=== PATIENT | female | born 1970 | race Caucasian/White ===

== ENCOUNTER → 2016-08-08 | Outpatient (CLI) | payer OTHER ==
[~2016-08-08] MED LIST: ALPR0.5T PO; FERR325T81 PO; IBUP-103 PO; MULTTAB58 PO; ONDA4TAB7 SL; PANT1TAB48 PO; PROM25TA16 PO
[2016-08-08 12:12] LABS: BASO % 0.2 %; BASO ABS # 0.01 K/uL (0-0.2); COMPLETE YES; EOS % 1.3 %; HEMATOCRIT 36.5 % (37-47); LYMPH % 36.8 %; LYMPH ABS # 2.33 K/uL (1.2-3.4); MEAN CELL VOLUME 78.5 fL (80-100); MEAN CORPUSCULAR HEMOGLOBIN 24.3 pg (25-34); MEAN PLATELET VOLUME 9.8 fL (7.4-10.4); NEUT % 55.7 %; PLATELET COUNT 322 K/uL (130-400); RED BLOOD COUNT 4.65 M/uL (4.2-5.4); WHITE BLOOD COUNT 6.33 K/uL (4.8-10.8)
[2016-08-08 12:33] LABS: ALT/SGPT 18 U/L (12-78); BLOOD UREA NITROGEN 14 mg/dl (7-18); BUN/CREATININE RATIO 18.6 (10-20); CARBON DIOXIDE 29 mmol/L (21-32); CHLORIDE 105 mmol/L (98-107); CREATININE 0.74 mg/dl (0.60-1.20); GLUCOSE 83 mg/dl (70-99); SODIUM 141 mmol/L (136-145)
[2016-08-08 12:42] LABS: ALB/GLOB RATIO 0.9 (0.9-2); ALKALINE PHOSPHATASE 87 U/L (45-117); AST/SGOT 13 U/L (15-37); THYROID STIMULATING HORMONE 0.626 uIu/ml (0.300-4.500); TOTAL IRON BINDING CAPACITY 554 mcg/dl (250-450)
[2016-08-10 16:28] LABS: IGA SERUM 319 mg/dL (81-463); TIS TRANS IGA 1 U/mL (<4)
== END | disposition home or self-care (01) ==
LOC: C.LAB1850 10:56
PROVIDERS: ATTEND Internal Medicine
DX: Z98.84 Bariatric surgery status (principal); R19.7 Diarrhea, unspecified; G47.9 Sleep disorder, unspecified

== ENCOUNTER → 2017-01-01 | Outpatient (CLI) | payer OTHER ==
[2017-01-01 14:47] LABS: BASO % 0.2 %; BASO ABS # 0.01 K/uL (0-0.2); COMPLETE YES; EOS % 0.9 %; HEMATOCRIT 41.1 % (37-47); IG% 0.2 %; LYMPH % 29.7 %; LYMPH ABS # 1.71 K/uL (1.2-3.4); MEAN CELL VOLUME 83.7 fL (80-100); MEAN CORPUSCULAR HEMOGLOBIN 26.1 pg (25-34); MEAN CORPUSCULAR HGB CONC 31.1 g/dl (32-36); MEAN PLATELET VOLUME 9.8 fL (7.4-10.4); MONO % 5.6 %; NEUT % 63.4 %; PLATELET COUNT 328 K/uL (130-400); RED BLOOD COUNT 4.91 M/uL (4.2-5.4); WHITE BLOOD COUNT 5.75 K/uL (4.8-10.8)
[2017-01-01 15:03] LABS: TOTAL IRON BINDING CAPACITY 484 mcg/dl (250-450)
== END | disposition home or self-care (01) ==
LOC: C.LAB1850 13:23
PROVIDERS: ATTEND Internal Medicine
DX: E53.8 Deficiency of other specified B group vitamins (principal); E55.9 Vitamin D deficiency, unspecified; D50.9 Iron deficiency anemia, unspecified

== ENCOUNTER → 2017-04-17 | Outpatient (CLI) | payer OTHER ==
[2017-04-17 13:18] LABS: BASO % 0.2 %; BASO ABS # 0.01 K/uL (0-0.2); COMPLETE YES; EOS % 0.7 %; HEMATOCRIT 40.1 % (37-47); IG% 0.2 %; LYMPH % 45.8 %; LYMPH ABS # 2.66 K/uL (1.2-3.4); MEAN CELL VOLUME 85.9 fL (80-100); MEAN CORPUSCULAR HEMOGLOBIN 27.6 pg (25-34); MEAN CORPUSCULAR HGB CONC 32.2 g/dl (32-36); MONO % 6.4 %; NEUT % 46.7 %; PLATELET COUNT 293 K/uL (130-400); RED BLOOD COUNT 4.67 M/uL (4.2-5.4); WHITE BLOOD COUNT 5.81 K/uL (4.8-10.8)
[2017-04-17 14:35] LABS: TOTAL IRON BINDING CAPACITY 524 mcg/dl (250-450)
== END | disposition home or self-care (01) ==
LOC: C.LAB1850 11:30
PROVIDERS: ATTEND Internal Medicine
DX: D64.9 Anemia, unspecified (principal)

== ENCOUNTER 2023-06-27 11:38 | Inpatient (IN) ==
--- NOTE | 2023-06-27 11:45 | ED Triage Note ---
Date of Service June 27, 2023 Provider in Triage Author: Unique Butt History of Present Illness This patient was briefly evaluated while in triage. An abbreviated physical exam was performed. This patient is a 52-year-old Female who presents to the ED for evaluation of was feeling poorly for about a week - arms weak, dizzy spells, nosebleeds, HAs at work acutely today, "couldn't use right hand," BP was 200s systolic has a headache Physical Exam GENERAL: NAD, hypertensive CARDIOVASCULAR: RRR RESPIRATORY: CTA ABDOMEN: BS x 4. Nontender to palpation. 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 Please see further documentation for the full ED course.
--- NOTE | 2023-06-27 12:23 | XRay Report ---
XR chest 1V not portable CLINICAL HISTORY: Hypertension. COMPARISON STUDY: Chest radiograph and chest CT April 21, 2012. FINDINGS: Lungs are clear. There is no pneumothorax or pleural effusion. Cardiac size is normal. Medi astinal contours are normal. There is no evidence for pulmonary edema. IMPRESSION: No acute cardiopulmonary findings. No change in appearance of the chest. ACT 112: Negative or not required by law. Electronically signed by: Keith Renteria M.D. 06/27/2023 12:22 PM
--- NOTE | 2023-06-27 12:38 | CT Scan Report ---
CT head/brain wo con CLINICAL HISTORY: 52 years-old Female with Hypertension. Acute hypertension TECHNIQUE: Multiple axial CT images of the head were obtained without contrast. A dose lowering tech nique was utilized adhering to the principles of ALARA. CT DOSE: 703.85 mGy.cm COMPARISON: None. FINDINGS: No acute intracranial hemorrhage, midline shift, intracranial mass, hydrocephalus, territorial ischem ia or abnormal extra-axial collection. The calvarium is intact. Chronic appearing volume loss of the right maxillary sinus. Mastoid air david ls are clear. IMPRESSION: No acute intracranial abnormality. ACT 112: Negative or not required by law. The above report was generated using voice recognition software. It may contain grammatical, syntax o r spelling errors. Electronically signed by: David Cameron M.D. 06/27/2023 12:37 PM
[2023-06-27 12:54] LABS: Basophils # (auto) 0.03 K/uL (0.00-0.20); Basophils % (auto) 0.4 %; Eosinophils # (auto) 0.03 K/uL (0.00-0.50); Eosinophils % (auto) 0.4 %; Hematocrit (blood only) 42.5 % (37.0-47.0); Hemoglobin 14.1 g/dl (12.0-16.0); Immature Granulocytes # (auto) 0.02 K/uL (0.01-0.20); Immature Granulocytes % (auto) 0.3 %; Lymphocytes # (auto) 2.18 K/uL (1.20-3.40); Lymphocytes % (auto) 31.7 %; Mean Corpuscular Hemoglobin 29.3 pg (25.0-34.0); Mean Corpuscular Hgb Conc 33.2 g/dL (32.0-36.0); Mean Corpuscular Volume 88.2 fL (80.0-100.0); Mean Platelet Volume 9.8 fL (9.4-12.4); Monocytes # (auto) 0.41 K/uL (0.11-0.59); Neutrophils # (auto) 4.21 K/uL (1.40-6.50); Neutrophils % (auto) 61.2 %; Platelet Count 253 K/uL (130-400); RDW Coefficient of Variation 13.9 % (11.5-14.5); RDW Standard Deviation 44.5 fL (36.4-46.3); Red Blood Count 4.82 M/uL (4.20-5.40); White Blood Count 6.88 K/ul (4.8-10.8)
[2023-06-27 13:19] LABS: Alanine Aminotransferase 20 U/L (7-52); Albumin Globulin Ratio 1.2 (0.9-2); Albumin Level 4.6 gm/dl (3.4-5.0); Alkaline Phosphatase 89 U/L (34-104); Anion Gap 9 (3-11); Aspartate Aminotransferase 19 U/L (13-39); BUN Creatinine Ratio 17.5 (10-20); Bilirubin,Total 0.4 mg/dl (0.2-1.0); Blood Urea Nitrogen 14 mg/dl (6-23); Calcium 9.7 mg/dl (8.6-10.3); Carbon Dioxide 26 mmol/L (21-32); Chloride 102 mmol/L (98-107); Est GFR (African American) 98.9 ml/min; Est GFR (Non-African American) 85.4 ml/min; Globulin 3.8 gm/dl (2.5-4.0); Glucose 114 mg/dl (70-99(Fasting)); Sodium 137 mmol/L (136-145); Total Protein 8.4 gm/dl (6.0-8.3)
[2023-06-27 13:24] LABS: Troponin I High Sensitivity 39.9 pg/ml (0-14)
--- NOTE | 2023-06-27 14:38 | Electrocardiogram Report ---
Test Reason : Blood Pressure : / mmHG Vent. Rate : 088 BPM Atrial Rate : 088 BPM P-R Int : 118 ms QRS Dur : 078 ms QT Int : 358 ms P-R-T Axes : 059 -52 044 degrees QTc Int : 433 ms Sinus rhythm with occasional Premature ventricular complexes Left anterior fascicular block Anterolateral infarct (cited on or before 01-MAY-2003) Abnormal ECG When compared with ECG of 30-NOV-2012 15:54, Premature ventricular complexes are now Present Left anterior fascicular block is now Present Questionable change in initial forces of Lateral leads Confirmed by Chau Moffett ([id number]) on 06/27/2023 2:38:17 PM Referred By: Confirmed By:Chau Moffett
[2023-06-27] MEDS ORDERED: MAGNESIUM SULFATE / D5W 1 GM/100 ML BAG IV ONE (14:45)
[2023-06-27] MEDS ORDERED: ACETAMINOPHEN 500 MG TAB PO STA (14:45)
[2023-06-27] MEDS ORDERED: ONDANSETRON INJ 2 MG/ML 2 ML VIAL IV STA (14:45)
[2023-06-27] MEDS ORDERED: LABETALOL HCL IV 5 MG/ML 20ML IV STA (15:10)
--- NOTE | 2023-06-27 15:18 | History & Physical Report ---
Date of Service June 27, 2023 Assessment & Plan (1) Hypertensive emergency: Plan: Hypertensive emergency Patient presented with headache, right hand weakness, dizziness, and blood pressure greater than 200. Previously on verapamil and 20 ER for history of migraine without headache, has not been taking this recently Previously on phentermine, patient reports she has not taken this since lastn year With elevated troponin 39.9, EKG sinus rhythm with PVCs no ST segment changes or T wave inversions. +headache (new, pt with hx of acephalic migraine and denies history of actual headache prior to this week). No vision change. +mid back pain. - No history of htn outside of sudden increases pre-op which she attributes to anxiety. She does endorse new pain between her shoulder blades and an ache which is started in the last week which coincides with increase and development of new headaches and her hypertension. CTA dissection protocol ordered, no acute intra-abdominal finding - Migraine improved, nearly resolved after labetelol 10mg x1. BP improving, amlodipine started MRI pending . 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 If continued sx/>180 despite labetelol --> nicardipine gtt. if (2) Stroke-like symptoms: Plan: History of neurologic symptoms, suspected migraine w/o h/a 05/2022 with MRI for diplopia. Also reported feeling of pressure and "greenwood "in peripheral vision. Weekly symptoms. Was experience diplopia at time of ophthalmology evaluation. Bilateral temporal pallor of the optic nerve heads was noted, follow-up study showed healthy retinal nerve fiber layers bilaterally. She was initially suspected to have space-occupying lesion, demyelinating disease, nutritional deficiency, Mg, versus infectious/inflammatory optic neuropathy. She had follow-up with neuro- ophthalmology at [facility], patient was suspected to have migraine aura. Optic nerves were noted to be healthy, and OCT normal is no signs of atrophy. Was recommended to continue magnesium and follow-up with her PCP/routine Optho. No signs of MS were noted at that time No known stroke/CVA Echo 07/2022 with grade 1 diastolic dysfunction but otherwise normal systolic function, and no interatrial shunt was present. - Pt reports Continues to have intermittent diplopia for the last year. Has seen [facility], optho, and extensive workup including retina evaluation, MRI, optic MRI, echo, EEG, antibody panel/spinal fluid analysis all of which have been normal. She reports she feels like a nausea/aura shortly preceding the episodes of the diplopia and was told she likely has migraine without aura although the pt feels it may be related to panic attacks. Last 3-5 minutes then goes away. - Acutely w/ L hand weakness/poor coordination which is new. MRI pending. ?HTN emergency vs CVA vs migrane (3) Anxiety disorder: Plan: Anxiety disorder Not currently taking any medications. previously had been on fluoxetine, duloxetine, nortriptyline, prozac, lexapro, xanax, sertraline. Most recenetly was prescribed fluoxetine 09/2022 with plans to uptritrate, she is not currently taking this Was seeing counseling through [facility] but was not seeing psychiatrist at the time. Disability had denied. Patient was restarted on fluoxetine 20 mg daily and uptitrated to 40 mg at that time. 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 Has followed with neurology. EEG 07/2022 without seizure-like activity. Followed with [facility] neurology 10/2022 for neurovisual abnormalities and optic nerve pallor. Patient was suspected to have migraine aura and was noted to have healthy appearing optic nerves at that time, was recommended for magnesium supplementation and to follow-up with ophthalmology (5) Status post gastric bypass for obesity: Plan: - noted - Continue B12 supplementation - No acute change (6) Morbid obesity: Plan: Morbid obesity S/p bypass gastric surgery 2001 in [place] with B12 deficiency, injections recommended every 3 to 4 months (7) PVD (peripheral vascular disease): Plan: History of vasospasm Saw vascular 2021. Imaging at that time with mild left tibial disease otherwise no significant arterial stenosis. Patient had an episode of toe discoloration over the winter while in full pops outside which was suspected to be due to vasospasm. Good perfusion at that time, additional intervention/testing was not recommended. Smoking cessation was reviewed at that time History of Present Illness Primary Care Provider: Ezekiel Swenson MD Yanni is a 52-year-old female with a past medical history of vertebral basilar migraine, anxiety, vasopasm, diplopia, gastric bipass and TANIYA who presents for symptomatic hypertension/hypertensive emergency. ED Course: While in the ER patient with a BP 220/84, And with right hand weakness, dizziness, nosebleed, and headache. CT of the head was with no acute findings. Patient was treated with magnesium. hs-trop 39.9 with no ischemic EKG findings. Hospitalist service was consulted for admission for hypertensive emergency. BP recheck 224/103, labetalol given for HTN emergency. Headache improved on recheck within 30 minutes of BP improvement Per Pt: Yanni reports she was at work today when she felt hot odd and and sweaty and L hand wouldn't work. Had difficulty coordinating her L hand and typing which has not happened to her before. [place] both week and poorly coordinated. No symptomics in L leg. No slurring of speech, denies expressive or receptive aphasia. BP was checked and was 200/'somthing' and was repeated by physician and noted to still be very high. Was referred directly to the ER. Endorses headache in her R psoterior head, andbilaterally overlying her temples. Does clench her teeth at night, but denies history of migraine headaches. Had been worked up for migraine aura, had been told she was likely to be having migraine aura without headcahe affecting her vision. No signs of MS on MRi although aunt did have MS. She has not taken any medications for over a year. Only took verapamil for 2 weeks. Was taken off after, but does not remember why. She endorses that she has had a pain between her shoulder blades and in her mid back for the last week, she reports this is new for her and she is not sure what causes it it feels like a pulled muscle but also slightly different. Improves but does not completely resolve at rest currently. Denies chest pain, chest pressure, inspiratory pain/pleuritic pain. She denies angina on exertion. Does feel slightly short of breath when she feels anxious like panic, this improves intermittently. Denies leg swelling. Denies history of DVT Takes no medications at all currently Has had headaches intermittently for the last 2 weeks, feels this is relatedto pressure over the holidays and stress from her parents passing away. Has been taking tylenol (no ibuprofen due to hx of gastric bipass) 1000mg total once daily. Does not seem to help. Endorses bilateral shoulder dull aching intermittently which seems to improves with stretching. No pain between her shoulder blades. No chest pain. No chest pressure. Has had some shortness of breath with anemia and anxiety, no change in dyspnea in the last few weeks or months. Feels very anxious. -RLQ pain/flank pain. Started 2 weeks ago. Constantly. No dysuria. No hematuria, no dysuria. Feels she may have strained her back playing with her 15 year old son. No history of kidney stones. Has had gallbladder removed in the past & bipass which was over 20 years ago, no issues since. Notes that this is slightly uncomfortable when moving but does not worsen with palpation and she do es not have any CVA tenderness or tenderness to percussion - Cardiac event monitor 08/22/2022: Normal sinus rhythm with frequent PVCs, no sustained arrhythmias. No atrial ectopy. No bradycardia. No A-fib. No heart block/pauses. Multiple symptoms including lightheadedness/dizziness were reported which did not correlate with any arrhythmia Medical History: Reviewed Medications: Reviewed Surgical History: Reviewed Family history: Reviewed Allergies: Reviewed Social History: Tobacco use Code Status: Full Allergies Allergy/AdvReac Type Severity Reaction Status Date / Time No Known Drug Allergies AdvReac Verified 09/01/22 08:53 Home Medications Medication Instructions Recorded Confirmed Type Tylenol 1 tab PO DIRECTED 06/27/23 06/27/23 History Past Med/Surg History Medical History (Updated 06/27/23 @ 15:30 by Jacobo Abel MD) Dizziness Discolored skin Atypical pneumonia Insomnia Iron deficiency anemia Lower back pain Morbid obesity Sleep disturbances Vitamin B12 deficiency Vitamin D deficiency disease Surgical History History of gastric surgery Hx of cholecystectomy H/O: section Status post gastric bypass for obesity Family History Mother Hypertension Coronary heart disease Breast cancer Father Hypertension Pure hypercholesterolemia Coronary heart disease Diabetes Membranous glomerulonephritis Grandmother Cervical cancer Social History Smoking Status: Current every day smoker Do You Dip or Chew Tobacco: No; Hx Alcohol Use: Yes Hx Substance Use: No Preferred Language: Armenian Communication Ability: Effective Visual Impairment: No Limitations Hearing Ability: Normal Plant Mechanic Required: No Beliefs That Will Affect Care: None marital status: Current Living Situation: Spouse and Family current occupational status: unemployed Feels Safe at Home: Yes Seatbelt Use: always Physical Exam Physical Exam: General: A&Ox3. Cooperative. Appears extremely anxious but nontoxic HEENT: Atraumatic, normocephalic. LEONEL. Vision intact. EOM without nystagmus. Pulm: CTAB A&P. -wheezes, -rales, -rhonchi. Symmetrical chest rise. No increased work of breathing. No respiratory distress. Cardiac: RRR, -mrg. Radial pulses intact and symmetrical. Abdominal: Nontender, nondistended, soft. BS present. No CVA tenderness. Extremities: Warm, dry. 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 Sensation to soft touch in hand forearm and shoulder is intact without deficit or asymmetry. Hip flexion 5/5, ankle dorsiflexion/plantarflexion 5/5 bilaterally and sensation in feet is intact to soft touch without deficit. Results & Data Results & Data Vital Signs (Past 12 Hours) Vital Signs Temp Pulse Pulse Resp BP BP Pulse Ox 06/27/23 15:01 84 21 220/98 H 98 06/27/23 15:00 73 21 99 06/27/23 11:43 36.6 C 90 18 219/107 H 100 O2 Del Method 06/27/23 15:01 Room Air 06/27/23 15:00 Room Air 06/27/23 11:43 Room Air PG Care Time/CCT Total # of Minutes Spent Total Time Spent with Patient: Total time spent is greater than 50% in coordination of care (as documented) at patient's floor/unit and/or counseling patient: Coding Level of Care Code 74120 INT INP/OBS CARE 3/75MIN Diagnoses Hypertensive emergency I16.1 Stroke-like symptoms R29.90 Anxiety disorder F41.9 Migraine aura without headache G43.109 Status post gastric bypass for obesity Z98.84 Morbid obesity E66.01 PVD (peripheral vascular disease) I73.9
[2023-06-27] MEDS ORDERED: LORazepam 1 MG TAB PO STA (16:00)
[2023-06-27] MEDS ORDERED: LABETALOL HCL IV 5 MG/ML 20ML IV PRN (16:01)
[2023-06-27] MEDS ORDERED: OPTIRAY 320 125ml IV ONE (16:49)
--- NOTE | 2023-06-27 17:13 | CT Scan Report ---
CT angio chest dissec wo/w con HISTORY: 52 years-old Female HTN emergency w/ mid back raegan acute hypertension with mid back pain COMPARISON: Chest radiograph of same day TECHNIQUE: CTA chest was obtained with and without the use of IV contrast. 3-D coronal and sagittal M IPS were obtained and submitted for review. All measurements were obtained according to NASCET criter ia. FINDINGS: CTA: Noncontrast scan demonstrates no intramural hematoma. No mediastinal hematoma. Mural for fatty change s of the left ventricular apex compatible with prior infarct. [id number]-[id number]-cnnmycul coronary artery calcif ications. No thoracic aortic aneurysm or dissection. Unremarkable pulmonary artery. No pulmonary embo li identified. CT CHEST: Unremarkable thyroid. No lymphadenopathy. No pneumothorax, pleural effusion, airspace consolidation, pulmonary edema, suspicious pulmonary nodule or mass. No acute upper abdominal abnormality. Hepatomegaly with hepatic steatosis. Postoperative changes of t he stomach. Unremarkable soft tissues. No acute fracture. IMPRESSION: 1. Unremarkable CTA of the chest. 2. Hepatomegaly with hepatic steatosis. 3. Postoperative changes of the stomach. ACT 112: Negative or not required by law. The above report was generated using voice recognition software. It may contain grammatical, syntax o r spelling errors. Electronically signed by: David Cameron M.D. 06/27/2023 5:12 PM
[2023-06-27] MEDS ORDERED: amLODIPine BESYLATE 5 MG TAB PO ONE (17:28)
--- NOTE | 2023-06-27 19:07 | Magnetic Resonance Report ---
MRI OF THE BRAIN WITHOUT IV CONTRAST CLINICAL HISTORY: Transient ischemic attack. Left hand weakness. COMPARISON STUDY: CT of the brain dated 06/27/2023. CT angiogram of the brain dated 08/14/2022. TECHNIQUE: MRI of the brain was performed utilizing various T1 and T2-weighted sequences in the axial , sagittal, and coronal planes. IV contrast was not administered for this examination. The examinatio n is degraded by motion artifact. FINDINGS: Brain parenchyma: There is minimal microangiopathic change. There is no hemorrhage or mass effect. Th ere is no restricted diffusion to suggest acute ischemia. Maharaj-white matter differentiation is preser davian. No extra-axial fluid collection is seen. The cerebellar tonsils are normal in configuration. Ventricles, sulci, and cisterns: Normal in configuration. Pituitary and sella: Unremarkable. Intracranial vasculature: Vascular flow voids are maintained at the skull base. The basilar artery fl ow-void is diminutive. This is similar to the previous CT angiogram. Orbits: The bony orbits are grossly intact. Orbital contents are normal in appearance. Sinuses and mastoids: Clear. Calvarium: Unremarkable. Cervical cord: Partially visualized cervical spinal cord is normal in morphology and signal intensity . IMPRESSION: No acute intracranial abnormality. ACT 112: Negative or not required by law. Electronically signed by: Miguel Angel Dos Santos M.D. 06/27/2023 7:04 PM
--- OUTSIDE RECORDS SUMMARY | 2023-06-27 19:40 | External Medical Summary | Summary of Care ---
Author Name Unknown Organization [facility] Address [address] [place] [address] Phone [phone] Care Team Providers Care Microbiology Director Name Role Phone Ezekiel Pedraza MD [facility] Care Provider Encounter Details Date Type Department Care Team Description 01/05/2023 Telephone [facility] [address] [place] [address] Philip Santoro MD [address] [place] [address] Allergies Active Allergy Reactions Severity Noted Date Comments No Known Drug Allergy 04/30/2002 documented as of this encounter (statuses as of 01/05/2023) Medications Medication Sig Dispensed Refills Start Date End Date Status 1 PLUS 1 65-1 MG PO TABS daily 0 11/26/2006 Active PROTONIX 40 MG PO TBEC One pill once a day 30 minutes before the first meal of the day. Do not crush, split or chew the tablet 30 5 10/29/2008 Active VICODIN 5-500 MG PO TABS One pill by mouth every 6 hours as needed for pain 40 0 10/29/2008 Active ZOFRAN 4 MG PO TABS 2 TABLETS 3 TIMES DAILY 0 10/29/2008 Active IMITREX 100 MG PO TABSIndications:Mi graine variant one pill at onset of ABARCA, no more than 2 pills per day or 6 per week 10 11 10/29/2008 Active Additional Information Patient not taking.Reported on 10/27/2022 B Complex Vitamins (VITAMIN B COMPLEX) Tablet Take 1 Tab by mouth daily. 0 Active ferrous sulfate (FEOSOL) 325 (65 FE) MG Tablet Take 325 mg by mouth daily with breakfast. 0 Active ALPRAZolam (XANAX) 0.5 MG Tablet 0 12/01/2016 Active Cholecalciferol (VITAMIN D3) 5000 UNITS Tablet 0 11/30/2016 Active Vitamin D, Ergocalciferol, 85989 UNITS Capsule 0 11/30/2016 Active Magnesium Oxide 400 MG Oral CapsuleIndications :Ocular migraine Take 1 Capsule by mouth in the morning. 30 Capsule 4 11/23/2022 Active Riboflavin 400 MG Oral CapsuleIndications :Ocular migraine Take 1 Capsule by mouth in the morning. 30 Capsule 4 11/23/2022 Active DULoxetine HCl 30 MG Oral Capsule Delayed Release Particles (Cymbalta)Indicati ons:Ocular migraine,Anxiety Take 1 Capsule by mouth in the morning. 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 Overview: ICD-10 update of inactive term B12 malabsorption s/p gastric bypass 07/2002 Morbid obesity, BMI not known 01/28/2002 Tobacco use disorder 09/15/1999 Bartholin's gland cyst DEPRESS PSYCHOSIS-MILD Anxiety states Overview: ICD-10 update of inactive term documented as of this encounter (statuses as of 01/05/2023) Resolved Problems Problem Noted Date Resolved Date ACUTE URI NOS 09/15/1999 08/13/2008 Overview: Resolved per Benign Acute Dxs Protocol #3 ACUTE PHARYNGITIS 09/15/1999 08/20/2008 Overview: Resolved per Benign Acute Dxs Protocol #3 documented as of this encounter (statuses as of 01/05/2023) Immunizations Name Administration Dates Next Due Seasonal Influenza, Quadriva lent, No Preserve, 6 Mons & Above, IM 03/06/2020 TDAP (age 10 and older)(Boostrix) 12/25/2016 documented as of this encounter Social History Tobacco Use Types Packs/Day Years Used Date Smoking Tobacco: Former Cigarettes 15 Q uit: 06/25/2002 Smokeless Tobacco: Never Alcohol Use Standard Drinks/Week Comments Yes 0 (1 standard drink = 0.6 oz pur e alcohol) weekends Sex Assigned at Date Recorded Not on file Job Start Date Occupation Industry Not on file Not on file Not on file documented as of this encounter Miscellaneous Notes * Telephone Encounter - Philip Santoro MD - 01/05/2023 11:13 AM EDT I spoke to patient. She reports dry mouth with nortriptylline which she stopped and now dry mouth has resolved. She reports the visual symptoms have signficantly improved after starting magnesium andriboflavin. She reports having anxiety after stopping prozac. We will discuss starting Cymbalta 30 mg daily for anxiety and for ocular migraine. We discussed if tolerated we can increase to 60 mg after 2 weeks. I told her to notify the office if needed to increase. documented in this encounter Plan of Treatment Upcoming Encounters Date Type Specialty Care Team Description 03/02/2023 Telemedicine Neurology Philip Santoro MD [address] [place] [address] Health Maintenance Due Date Last Done Comments Hepatitis B (1 of 3 - 3-dose series) 1971 Depression Screening, Annual for Pts 12 and Over 1983 HIV Screening 09/27/1986 Hepatitis C Screening 09/27/1989 Pap Smear 09/18/2007 09/17/2002, 08/24, 02/17/1999 Lipid Panel 10/04/2007 10/03/2002, 01/28/2002 Mammogram 2011 Cologuard 09/27/2016 Colonoscopy 09/27/2016 Colorectal Cancer Screening 09/27/2016 Fecal Occult Blood Test 09/27/2016 Sigmoidoscopy 09/27/2016 COVID-19 Vaccine (3 - Booster for Miguelina series) 06/25/2021 04/30/2021, 10/30/2020 Zoster Vaccines (1 of 2) 09/27/2021 Influenza Vaccine (FLU shot) (#1) 2023 03/06/2020, 04/08/1999 Diabetes Screening 09/01/2025 09/01/2022, 0 10/05/2004, 04/29/2003, Additional history exists DTaP,Tdap,and Td Vaccines (2 - Td or Tdap) 12/25/2026 12/25/2016, 05/12/1999, 05/12/1999 GARDASIL-HPV IMMUNIZATION SERIES Aged Out No longer eligible based on patient's age to complete this topic MENINGOCOCCAL (MENACTRA/MENVEO) Aged Out No longer eligible based on patient's age to complete this topic Pneumococcal Vaccine: Pediatrics (0 to 5 Years) and At-Risk Patients (6 to 64 Years) Aged Out No longer eligible based on patient's age to complete this topic documented as of this encounter Medical Devices Not on filedocumented as of this encounter Care Teams Microbiology Director Relationship Specialty Start Date End Date Ezekiel Pedraza MD [id number] [address] PCP - General Internal Medicine 12/25/16 documented as of this encounter
--- OUTSIDE RECORDS SUMMARY | 2023-06-27 19:40 | External Medical Summary | Summary of Care ---
Author Name Unknown Organization [facility] Address [address] [place] [address] Phone [phone] Care Team Providers [employer] Salesperson Name Role Phone Andi Gibbs MD [facility] Care Provider Reason for Visit * Evaluate & Treat - Unlimited Visits (Within 10 days (routine)) - Closed Specialty Diagnoses / Procedures Referred By Chantell foy Referred To Contact Neurology Diagnoses Family history of neurological disease Diplopia Wellington Jha MD [address] [place] [address] Referral ID Status Reason Start Date Expiration Date V isits Requested Visits Authorized [id number] Closed Specialty Services Required 10/05/2022 1 1 Encounter Details Date Type Department Care Team Description [facility] [address] [place] [address] Philip Santoro MD [address] [place] [address] Ocular migraine*; Anxiety and depression; Anxiety Allergies Active Allergy Reactions Severity Noted Date [...] 0 10/29/2008 Active IMITREX 100 MG PO TABSIndications: Migraine variant one pill at onset of ABARCA, [...] Tablet 0 11/30/2016 Active Vitamin D, Ergocalciferol, 37786 UNITS Capsule 0 11/30/2016 Active Magnesium Oxide 400 MG Oral CapsuleIndicatio ns:Ocular migraine Take 1 Capsule by mouth in the morning. 30 Capsule 4 11/23/2022 Active Riboflavin 400 MG Oral CapsuleIndicatio ns:Ocular migraine Take 1 Capsule by mouth in the morning. 30 Capsule 4 11/23/2022 Active DULoxetine HCl 30 MG Oral Capsule Delayed Release Particles (Cymbalta)Indica tions:Ocular migraine,Anxiety Take 1 Capsule by mouth in the morning. 30 Capsule 4 01/05/2023 Active AMITRIPTYLINE HCL 10 MG PO TABSIndications: Headache(784.0), Migraine variant One pill by mouth at bedtime for a week, 2 pills QHS for a week, 3 pills at bedtime thereafter 80 5 10/29/2008 3 Discontinued sertraline (ZOLOFT) 100 MG Tablet 0 12/01/2016 3 Discontinued traZODone (DESYREL) 100 MG Tablet 0 11/30/2016 3 Discontinued FLUoxetine HCl 20 MG Oral Capsule Take 1 Capsule by mouth daily. 0 3 Discontinued Nortriptyline HCl 25 MG Oral Capsule (Pamelor)Indicat ions:Ocular migraine Take 2 Capsules by mouth at bedtime. 60 Capsule 3 11/23/2022 3 Discontinued documented as of this encounter (statuses as [...] on file documented as of this encounter Progress Notes * Philip Santoro MD - 01/05/2023 10:59 AM EDT NEUROLOGY- New Patient Referral [facility] Multiple sclerosis/Neuroimmunology Clinic Name: Yanni Chino Ref: ANDI GIBBS[[id number]] [address] [address] (office) [phone] (fax) PCP: ANDI GIBBS [address] [address] [phone] History provided by: Patient and Family Chief Complaint: No chief complaint on file. HPI: 52 year old left handed female referred to multiple sclerosis clinic for evaluation of multiple sclerosis. The patient reports approximately a year ago she developed dizziness that initially wasoccurring 1 time per month but then developed into to 2-3 times per week. She also reports double vision they can last between 2-5 minutes. She now feels items being distorted at 90. She reports have been MRIs and lumbar punctures that were unremarkable. She was seen by fly winder that told her she had optic pallor. She is since then been seen by Neuro-Ophthalmology and after review of their notes it does not appear that the patient has any optic pallor. She has never had any symptoms suggestive of optic neuritis. She denies ever having a classic demyelinating event. She does report sometimes she has she sees items stacked, 2-3 items horizontal as well as shimmering water around items but the vision is normal in the center. At times she has intermittent left arm tingling that lastsfor few minutes. PAST MEDICAL HISTORY: Past Medical History: Diagnosis Date Bartholin's gland cyst 08-31-98 Morbid obesity, BMI not known (HCC) Current Outpatient Medications: Current Outpatient Medications Medication Sig Dispense Refill Nortriptyline HCl 25 MG Oral Capsule (Pamelor) Take 2 Capsules by mouth at bedtime. 60 Capsule 3 Magnesium Oxide 400 MG Oral Capsule Take 1 Capsule by mouth in the morning. 30 Capsule 4 Riboflavin 400 MG Oral Capsule Take 1 Capsule by mouth in the morning. 30 Capsule 4 1 PLUS 1 65-1 MG PO TABS daily (Patient not taking: Reported on 10/27/2022) 0 PROTONIX 40 MG PO TBEC One pill once a day 30 minutes before the first meal of the day. Do not crush, split or chew the tablet (Patient not taking: Reported on 10/27/2022) 30 5 VICODIN 5-500 MG PO TABS One pill by mouth every 6 hours as needed for pain (Patient not taking: Reported on 10/27/2022) 40 0 ZOFRAN 4 MG PO TABS 2 TABLETS 3 TIMES DAILY (Patient not taking: Reported on 10/27/2022) 0 IMITREX 100 MG PO TABS one pill at onset of ABARCA, no more than 2 pills per day or 6 per week (Patient not taking: Reported on 10/27/2022) 10 11 AMITRIPTYLINE HCL 10 MG PO TABS One pill by mouth at bedtime for a week, 2 pills QHS for a week, 3 pills at bedtime thereafter (Patient not taking: Reported on 10/27/2022) 80 5 B Complex Vitamins (VITAMIN B COMPLEX) Tablet Take 1 Tab by mouth daily. (Patient not taking: Reported on 10/27/2022) ferrous sulfate (FEOSOL) 325 (65 FE) MG Tablet Take 325 mg by mouth daily with breakfast. (Patient not taking: Reported on 10/27/2022) ALPRAZolam (XANAX) 0.5 MG Tablet (Patient not taking: Reported on 10/27/2022) Cholecalciferol (VITAMIN D3) 5000 UNITS Tablet (Patient not taking: Reported on 10/27/2022) Vitamin D, Ergocalciferol, 97069 UNITS Capsule (Patient not taking: Reported on 10/27/2022) No current facility-administered medications for this visit. PAST SURGICAL HISTORY: Past Surgical History: Procedure Laterality Date CREATE EARDRUM OPENING,LOCAL ANESTH Tympanostomy REMOVAL OF ADENOIDS, UNDER AGE 13 Adenoids Removal, <13 Y/O REPAIR OF VULVA LESION Bartholin Marsup Gland Cyst FAMILY HISTORY: Family History Problem Relation Age of Onset Diabetes Grandfather (Maternal) Diabetes Aunt (Unspecified) Heart Disorder Mother Cardiac arrest age 40, Heart Disorder Grandfather (Maternal) CABG Heart Disorder Grandmother (Maternal) [place] Heart Disorder Uncle (Unspecified) CAD Hypertension Grandfather (Maternal) Hypertension Mother Stroke Grandfather (Paternal) Heart Disorder Mother cardiomyopathy Diabetes Father niddm Hypertension Father Renal Hx Father nephropathy Alcohol and Other Disorders Associated Father etoh Cancer Grandmother (Maternal) endometrial cancer age 72 SOCIAL HISTORY: Social History Tobacco Use Smoking status: Former Years: 15.00 Types: Cigarettes Quit date: 06/25/2002 Years since quittin.5 Smokeless tobacco: Never Substance Use Topics Alcohol use: Yes Comment: weekends Drug use: No ALLERGIES: No known drug allergy ROS: 14 systems were reviewed are otherwise negative unless noted in HPI. PHYSICAL EXAMINATION: Most Recent Vital Signs: There were no vitals filed for this visit. Exam: Patient is alert and oriented to person place and time. Speech is clear. Language appears normal. Extraocular movements intact. Facial sensation intact. No facial weakness. Tongue protrudes to midline. Patient moves upper extremities well without drift. No tremor noted. Dahmfp-sr-myid is smooth bilaterally. There does not appear to be any focal motor deficit. ICD-10-CM 1. Ocular migraine G43.109 This is a 52-year-old left-handed female who presents to Neurology Clinic for evaluation of multiple sclerosis. She was seen by Ophthalmology in the past who suggested she had optic pallor. However MRI of the brain and cervical spine does not show any classic demyelinating lesions. She has very fewsubcortical white matter lesions which are not typical for multiple sclerosis and these are nonspecific. I discussed with the patient that she does not meet criteria for multiple sclerosis and her symptoms are not classic for multiple sclerosis. She recently seen Neuro-Ophthalmology and per review of chart she does not have optic pallor. She also reports lumbar puncture was unremarkable although I do not have results to review. Her symptoms are likely suggestive of migraine possible ocular migraine. I will start the patient on nortriptyline as a migraine preventative. We will also start magnesium oxide and riboflavin as migraine preventative. The patient can follow-up in 2-3 months or sooner if needed Plan: Nortriptyline hcl 25 mg or caps Sig:Take 2 capsules by mouth at bedtime. Magnesium oxide 400 mg or caps Sig:Take 1 capsule by mouth in the morning. Riboflavin 400 mg or caps Sig:Take 1 capsule by mouth in the morning. Philip Santoro MD, [facility] [place], [facility] Staff Neurologist I spent 60 minutes with the patient performing both huch-hm-[id number] and non wwbs-cl-ojaw activities onthe date of service. My activities included reviewing past records, labs, images prior to encounter, performing history and physical during the encounter, counseling patient, and documenting clinicalinformation. The above note was dictated using voice recognition software. Although this has been proofread for any spelling or other typographical errors, speech recognition errors are still possible. Patient location: HOME. I was not in a hospital or clinic location. After connecting through televideo, patient was verified with two unique identifiers. Patient (or authorized legal architectural representative) was then informed that this was a Telemedicine visit and being conducted confidentially over secure lines. Methods to assure confidentiality were taken. Patient acknowledged consent and understanding of privacy and security of the Telemedicine visit. The patient agreed to participate. documented in this encounter Plan of Treatment Upcoming Encounters Date Type Specialty Care Team Description 03/02/2023 Telemedicine Neurology Philip Santoor MD [address] [place] [address] Health Maintenance Due Date Last [...] Not on filedocumented as of this encounter Visit Diagnoses Diagnosis Ocular migraine- Primary Other forms of migraine, without mention of intractable migraine without mention of status migrainosus Anxiety and depression Dysthymic disorder Anxiety Anxiety state, unspecified documented in this encounter Care Teams [employer] Salesperson Relationship Specialty Start Date End Date Andi Gibbs MD [address] [place] [address] PCP - General Internal Medicine 12/25/16 documented as of this encounter
[2023-06-28] MEDS ORDERED: ACETAMINOPHEN 325 MG TAB PO PRN (03:37)
[2023-06-28 07:24] LABS: Basophils # (auto) 0.01 K/uL (0.00-0.20); Basophils % (auto) 0.2 %; Eosinophils # (auto) 0.05 K/uL (0.00-0.50); Eosinophils % (auto) 1.2 %; Hematocrit (blood only) 38.1 % (37.0-47.0); Hemoglobin 12.3 g/dl (12.0-16.0); Immature Granulocytes # (auto) 0.01 K/uL (0.01-0.20); Immature Granulocytes % (auto) 0.2 %; Lymphocytes # (auto) 1.73 K/uL (1.20-3.40); Lymphocytes % (auto) 40.4 %; Mean Corpuscular Hemoglobin 28.7 pg (25.0-34.0); Mean Corpuscular Hgb Conc 32.3 g/dL (32.0-36.0); Mean Platelet Volume 9.7 fL (9.4-12.4); Neutrophils # (auto) 2.18 K/uL (1.40-6.50); Platelet Count 203 K/uL (130-400); RDW Coefficient of Variation 14.1 % (11.5-14.5); RDW Standard Deviation 45.4 fL (36.4-46.3); Red Blood Count 4.28 M/uL (4.20-5.40); White Blood Count 4.28 K/ul (4.8-10.8)
--- NOTE | 2023-06-28 07:40 | Hospitalist Progress Note ---
Date of Service June 28, 2023 Assessment & Plan (1) Hypertensive emergency: (2) Stroke-like symptoms: (3) Vertebrobasilar migraine: (4) Migraine aura without headache: (5) Eye pain: Plan Yanni is a 52-year-old female with a past medical history of vertebral basilar migraine, anxiety, vasospasm, diplopia, gastric bypass and TANIYA who presents for symptomatic hypertension/hypertensive emergency. Hypertensive emergency -Patient presented with headache, right hand weakness, dizziness, and blood pressure greater than 200. Previously on verapamil and 20 ER for history of migraine without headache, has not been taking this recently -Previously on phentermine, patient reports she has not taken this since last year -With elevated troponin 39.9, EKG sinus rhythm with PVCs no ST segment changes or T wave inversions. +headache (new, pt with hx of acephalic migraine and denies history of actual headache prior to this week). No vision change. +mid back pain. -No history of htn outside of sudden increases pre-op which she attributes to anxiety. -She does endorse new pain between her shoulder blades and an ache which is started in the last week which coincides with increase and development of new headaches and her hypertension. CTA dissection protocol ordered, no acute intra-abdominal finding -Migraine improved, nearly resolved after labetelol 10mg x1. BP improving, amlodipine started -MRI pending . 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 If continued sx/>180 despite labetelol --> nicardipine gtt. if Stroke-like symptoms History of neurologic symptoms, suspected migraine w/o h/a -05/2022 with MRI for diplopia. Also reported feeling of pressure and "greenwood "in peripheral vision. Weekly symptoms. Was experience diplopia at time of ophthalmology evaluation. Bilateral temporal pallor of the optic nerve heads was noted, follow-up study showed healthy retinal nerve fiber layers bilaterally. She was initially suspected to have space-occupying lesion, demyelinating disease, nutritional deficiency, Mg, versus infectious/inflam matory optic neuropathy. She had follow-up with neuro-ophthalmology at [facility] [place] [place], patient was suspected to have migraine aura. Optic nerves were noted to be healthy, and OCT normal is no signs of atrophy. Was recommended to continue magnesium and follow-up with her PCP/routine Optho. No signs of MS were noted at that time -No known stroke/CVA -Echo 07/2022 with grade 1 diastolic dysfunction but otherwise normal systolic function, and no interatrial shunt was present. -Pt reports Continues to have intermittent diplopia for the last year. Has seen [facility], optho, and extensive workup including retina evaluation, MRI, optic MRI, echo, EEG, antibody panel/spinal fluid analysis all of which have been normal. She reports she feels like a nausea/aura shortly preceding the episodes of the diplopia and was told she likely has migraine without aura although the pt feels it may be related to panic attacks. Last 3-5 minutes then goes away. -Acutely w/ L hand weakness/poor coordination which is new. MRI pending. ?HTN emergency vs CVA vs migrane Anxiety disorder -Not currently taking any medications. previously had been on fluoxetine, duloxetine, nortriptyline, prozac, lexapro, xanax, sertraline. Most recenetly was prescribed fluoxetine 09/2022 with plans to uptritrate, she is not currently taking this -Was seeing counseling through her [employer]ec[employer]al every Sunday but was not seeing psychiatrist at the time. Disability had denied. Patient was restarted on fluoxetine 20 mg daily and uptitrated to 40 mg at that time. 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 -Has followed with neurology. EEG 07/2022 without seizure-like activity. -Followed with [facility] neurology 10/2022 for neurovisual abnormalities and optic nerve pallor. Patient was suspected to have migraine aura and was noted to have healthy appearing optic nerves at that time, was recommended for magnesium supplementation and to follow-up with ophthalmology Status post gastric bypass for obesity -noted -Continue B12 supplementation -No acute change Morbid obesity -S/p bypass gastric surgery 2001 in [place] with B12 deficiency, injections recommended every 3 to 4 months PVD (peripheral vascular disease) History of vasospasm -Saw vascular 2021. Imaging at that time with mild left tibial disease otherwise no significant arterial stenosis. Patient had an episode of toe discoloration over the winter while in full pops outside which was suspected to be due to vasospasm. Good perfusion at that time, additional intervention/testing was not recommended. Smoking cessation was reviewed at that time Admission and Anticipated Discharge Date Admission Date: June 27, 2023 Results & Data Results & Data Vital Signs (Past 12 Hours) Vital Signs Pulse Resp BP Pulse Ox O2 Del Method 06/28/23 05:24 67 06/28/23 05:00 68 14 152/89 H 96 Room Air 06/28/23 04:00 63 13 152/89 H 97 Room Air 06/28/23 03:24 66 19 179/84 H 96 Room Air 06/28/23 01:47 65 06/28/23 01:00 65 17 172/89 H 98 06/28/23 00:00 57 L 15 100 06/27/23 23:00 69 18 167/85 H 06/27/23 22:00 66 17 06/27/23 21:00 71 15 98 06/27/23 20:00 75 21 96 Resident Activity Tracking Resident Involvement: Resident Care Provided Care Provided: Adult Hospital Medicine
[2023-06-28 07:43] LABS: Alanine Aminotransferase 16 U/L (7-52); Albumin Globulin Ratio 1.1 (0.9-2); Albumin Level 3.6 gm/dl (3.4-5.0); Alkaline Phosphatase 68 U/L (34-104); Anion Gap 8 (3-11); Aspartate Aminotransferase 16 U/L (13-39); BUN Creatinine Ratio 18.8 (10-20); Bilirubin,Total 0.5 mg/dl (0.2-1.0); Blood Urea Nitrogen 13 mg/dl (6-23); Calcium 8.6 mg/dl (8.6-10.3); Carbon Dioxide 26 mmol/L (21-32); Chloride 103 mmol/L (98-107); Est GFR (African American) 116.8 ml/min; Est GFR (Non-African American) 100.8 ml/min; Globulin 3.2 gm/dl (2.5-4.0); Glucose 108 mg/dl (70-99(Fasting)); Sodium 137 mmol/L (136-145); Total Protein 6.8 gm/dl (6.0-8.3)
[2023-06-28] MEDS ORDERED: amLODIPine BESYLATE 5 MG TAB PO SCH (09:00)
--- NOTE | 2023-06-28 12:10 | Discharge Summary ---
Date of Service June 28, 2023 Admission HPI Per Admitting Provider Yanni is a 52-year-old female with a past medical history of vertebral basilar migraine, anxiety, vasopasm, diplopia, gastric bipass and TANIYA who presents for symptomatic hypertension/hypertensive emergency. ED Course: While in the ER patient with a BP 220/84, And with right hand weakness, dizziness, nosebleed, and headache. CT of the head was with no acute findings. Patient was treated with magnesium. hs-trop 39.9 with no ischemic EKG findings. Hospitalist service was consulted for admission for hypertensive emergency. BP recheck 224/103, labetalol given for HTN emergency. Headache improved on recheck within 30 minutes of BP improvement Per Pt: Yanni reports she was at work today when she felt hot odd and and sweaty and L hand wouldn't work. Had difficulty coordinating her L hand and typing which has not happened to her before. [place] both week and poorly coordinated. No symptomics in L leg. No slurring of speech, denies expressive or receptive aphasia. BP was checked and was 200/'somthing' and was repeated by physician and noted to still be very high. Was referred directly to the ER. Endorses headache in her R psoterior head, andbilaterally overlying her temples. Does clench her teeth at night, but denies history of migraine headaches. Had been worked up for migraine aura, had been told she was likely to be having migraine aura without headcahe affecting her vision. No signs of MS on MRi although aunt did have MS. She has not taken any medications for over a year. Only took verapamil for 2 weeks. Was taken off after, but does not remember why. She endorses that she has had a pain between her shoulder blades and in her mid back for the last week, she reports this is new for her and she is not sure what causes it it feels like a pulled muscle but also slightly different. Improves but does not completely resolve at rest currently. Denies chest pain, chest pressure, inspiratory pain/pleuritic pain. She denies angina on exertion. Does feel slightly short of breath when she feels anxious like panic, this improves intermittently. Denies leg swelling. Denies history of DVT Takes no medications at all currently Has had headaches intermittently for the last 2 weeks, feels this is relatedto pressure over the holidays and stress from her parents passing away. Has been taking tylenol (no ibuprofen due to hx of gastric bipass) 1000mg total once daily. Does not seem to help. Endorses bilateral shoulder dull aching intermittently which seems to improves with stretching. No pain between her shoulder blades. No chest pain. No chest pressure. Has had some shortness of breath with anemia and anxiety, no change in dyspnea in the last few weeks or months. Feels very anxious. -RLQ pain/flank pain. Started 2 weeks ago. Constantly. No dysuria. No hematuria, no dysuria. Feels she may have strained her back playing with her 15 year old son. No history of kidney stones. Has had gallbladder removed in the past & bipass which was over 20 years ago, no issues since. Notes that this is slightly uncomfortable when moving but does not worsen with palpation and she does not have any CVA tenderness or tenderness to percussion - Cardiac event monitor 08/22/2022: Normal sinus rhythm with frequent PVCs, no sustained arrhythmias. No atrial ectopy. No bradycardia. No A-fib. No heart block/pauses. Multiple symptoms including lightheadedness/dizziness were reported which did not correlate with any arrhythmia Medical History: Reviewed Medications: Reviewed Surgical History: Reviewed Family history: Reviewed Allergies: Reviewed Social History: Tobacco use Code Status: Full Admission Exam Per Admitting Provider General: A&Ox3. Cooperative. Appears extremely anxious but nontoxic HEENT: Atraumatic, normocephalic. LEONEL. Vision intact. EOM without nystagmus. Pulm: CTAB A&P. -wheezes, -rales, -rhonchi. Symmetrical chest rise. No increased work of breathing. No respiratory distress. Cardiac: RRR, -mrg. Radial pulses intact and symmetrical. Abdominal: Nontender, nondistended, soft. BS present. No CVA tenderness. Extremities: Warm, dry. 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 Sensation to soft touch in hand forearm and shoulder is intact without deficit or asymmetry. Hip flexion 5/5, ankle dorsiflexion/plantarflexion 5/5 bilaterally and sensation in feet is intact to soft touch without deficit. Principal Diagnosis Hypertensive emergency Discharge Exam Constitutional WD/WN, vitals as above Eyes + anicteric sclerae; no conjunctival abnormality ENMT Ears: no external ear abnormality Nose: no external nose abnormality Moist mucous membranes Respiratory normal respiratory effort, lungs clear to auscultation Cardiovascular RRR, no murmur, no edema Skin no rashes, warm and dry Psychiatric A+Ox3, euthymic affect Discharge Data Allergies Allergy/AdvReac Type Severity Reaction Status Date / Time No Known Drug Allergies AdvReac Verified 09/01/22 08:53 Consultations 06/27/23 14:45 ED Decision to Admit Stat Ordered Studies 06/27/23 11:47 CT head/brain wo con Stat 06/27/23 14:45 MR brain wo con Stat 06/27/23 15:47 CTA chest dissec wo/w con [CT angio chest dissec wo/w con] Stat Chest X-Ray 06/27/23 11:45 XR chest 1V not portable CLINICAL HISTORY: Hypertension. COMPARISON STUDY: Chest radiograph and chest CT April 21, 2012. FINDINGS: Lungs are clear. There is no pneumothorax or pleural effusion. Cardiac size is normal. Mediastinal contours are normal. There is no evidence for pulmonary edema. IMPRESSION: No acute cardiopulmonary findings. No change in appearance of the chest. ACT 112: Negative or not required by law. Electronically signed by: Keith Renteria M.D. 06/27/2023 12:[address] 06/27/23 11:47 CT head/brain wo con CLINICAL HISTORY: 52 years-old Female with Hypertension. Acute hypertension TECHNIQUE: Multiple axial CT images of the head were obtained without contrast. A dose lowering technique was utilized adhering to the principles of ALARA. CT DOSE: 703.85 mGy.cm COMPARISON: None. FINDINGS: No acute intracranial hemorrhage, midline shift, intracranial mass, hydrocephalus, territorial ischemia or abnormal extra-axial collection. The calvarium is intact. Chronic appearing volume loss of the right maxillary sinus. Mastoid air cells are clear. IMPRESSION: No acute intracranial abnormality. ACT 112: Negative or not required by law. The above report was generated using voice recognition software. It may contain grammatical, syntax or spelling errors. Electronically signed by: David Cameron M.D. 06/27/2023 12:37 PM Brain MRI 06/27/23 14:45 MRI OF THE BRAIN WITHOUT IV CONTRAST CLINICAL HISTORY: Transient ischemic attack. Left hand weakness. COMPARISON STUDY: CT of the brain dated 06/27/2023. CT angiogram of the brain dated 08/14/2022. TECHNIQUE: MRI of the brain was performed utilizing various T1 and T2-weighted sequences in the axial, sagittal, and coronal planes. IV contrast was not administered for this examination. The examination is degraded by motion artifact. FINDINGS: Brain parenchyma: There is minimal microangiopathic change. There is no hemorrhage or mass effect. There is no restricted diffusion to suggest acute ischemia. Maharaj-white matter differentiation is preserved. No extra-axial fluid collection is seen. The cerebellar tonsils are normal in configuration. Ventricles, sulci, and cisterns: Normal in configuration. Pituitary and sella: Unremarkable. Intracranial vasculature: Vascular flow voids are maintained at the skull base. The basilar artery flow-void is diminutive. This is similar to the previous CT angiogram. Orbits: The bony orbits are grossly intact. Orbital contents are normal in appearance. Sinuses and mastoids: Clear. Calvarium: Unremarkable. Cervical cord: Partially visualized cervical spinal cord is normal in morphology and signal intensity. IMPRESSION: No acute intracranial abnormality. ACT 112: Negative or not required by law. Electronically signed by: Miguel Angel Dos Santos M.D. 06/27/2023 7:04 PM Chest CTA 06/27/23 15:47 CT angio chest dissec wo/w con HISTORY: 52 years-old Female HTN emergency w/ mid back raegan acute hypertension with mid back pain COMPARISON: Chest radiograph of same day TECHNIQUE: CTA chest was obtained with and without the use of IV contrast. 3-D coronal and sagittal MIPS were obtained and submitted for review. All measurements were obtained according to NASCET criteria. FINDINGS: CTA: Noncontrast scan demonstrates no intramural hematoma. No mediastinal hematoma. Mural for fatty changes of the left ventricular apex compatible with prior infarct. Drex-[id number]-oeoxddlu coronary artery calcifications. No thoracic aortic aneurysm or dissection. Unremarkable pulmonary artery. No pulmonary emboli identified. CT CHEST: Unremarkable thyroid. No lymphadenopathy. No pneumothorax, pleural effusion, airspace consolidation, pulmonary edema, suspicious pulmonary nodule or mass. No acute upper abdominal abnormality. Hepatomegaly with hepatic steatosis. Postoperative changes of the stomach. Unremarkable soft tissues. No acute fracture. IMPRESSION: 1. Unremarkable CTA of the chest. 2. Hepatomegaly with hepatic steatosis. 3. Postoperative changes of the stomach. ACT 112: Negative or not required by law. The above report was generated using voice recognition software. It may contain grammatical, syntax or spelling errors. Electronically signed by: David Cameron M.D. 06/27/2023 5:12 PM Hospital Course (1) Hypertensive emergency: (2) Stroke-like symptoms: (3) Vertebrobasilar migraine: (4) Migraine aura without headache: (5) Eye pain: Daxa Liao is a 52-year-old female with a past medical history of vertebral basilar migraine, anxiety, vasospasm, diplopia, gastric bypass and TANIYA who presents for symptomatic hypertension/hypertensive emergency. Hypertensive emergency -Patient presented with headache, right hand weakness, dizziness, and blood pressure greater than 200. Previously on verapamil and 20 ER for history of migraine without headache, has not been taking this recently -With elevated troponin 39.9, EKG sinus rhythm with PVCs no ST segment changes or T wave inversions. +headache (new, pt with hx of acephalic migraine and denies history of actual headache prior to this week). No vision change. -No history of htn outside of sudden increases pre-op which she attributes to anxiety. -She does endorse new pain between her shoulder blades and an ache which is started in the last week which coincides with increase and development of new headaches and her hypertension. CTA dissection protocol ordered, no acute intra-abdominal finding, MRI without acute findings. -BP initially addressed with labetalol, amlodipine. BP decreased to 150s/100 at time of discharge. -Started patient on Olmesartan. Would plan to check BMP in 1 week to monitor kidney response. Advised patient to check BP at home, follow up with PCP within 1 week. Stroke-like symptoms -Suspect this was secondary to hypertensive emergency, fortunately symptoms of left arm weakness and headache resolved fairly quickly after BP was improved. -No known stroke/CVA in the past. As below- has seen neuro-ophthalmology at [facility] in the past and diagnosed with migraine aura. -Echo 07/2022 with grade 1 diastolic dysfunction but otherwise normal systolic function, and no interatrial shunt was present. -At time of discharge, obtained lipid profile and started patient on statin and daily aspirin. Anxiety disorder -Not currently taking any medications. previously had been on fluoxetine, duloxetine, nortriptyline, Prozac, Lexapro, Xanax, sertraline. Most recently was prescribed fluoxetine, but is not currently taking this -Was seeing counseling through her [facility] every Sunday but was not seeing psychiatrist at the time -Discussed the multiple components needed to successfully address anxiety- for patient this likely includes daily physical activity, tanja/prayer, hobbies, etc. as well as medication. However discussed that the medication is not likely to be successful if it is in the only factor being addressed. Encouraged patient to continue conversation with her PCP, and consider if adding a medication is appropriate. 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 -Has followed with neurology. EEG 07/2022 without seizure-like activity. -Followed with [facility] neurology 10/2022 for neurovisual abnormalities and optic nerve pallor. Patient was suspected to have migraine aura and was noted to have healthy appearing optic nerves at that time, was recommended for magnesium supplementation and to follow-up with ophthalmology S/P gastric bypass for obesity -noted -Continue B12 supplementation -No acute change Morbid obesity -S/p bypass gastric surgery 2001 in [place] with B12 deficiency, injections recommended every 3 to 4 months PVD (peripheral vascular disease) History of vasospasm -Saw vascular 2021. Imaging at that time with mild left tibial disease otherwise no significant arterial stenosis. Patient had an episode of toe discoloration over the winter while in full pops outside which was suspected to be due to vasospasm. Good perfusion at that time, additional intervention/testing was not recommended. Smoking cessation was reviewed at that time Total Time Total Time Spent Total Time Spent (In Minutes): . Discharge Plan Discharge Items Patient Disposition: Home - Self-Care Reason For Visit: HTN EMERGENCY Discharge Diagnosis: Hypertensive Emergency Activity: Per Instructions section Non-emergency contact: Primary Care Provider Call non-emergency contact if: you have any medication questions and your symptoms worsen Follow-up/Referrals: Ezekiel Swenson MD [Primary Care Provider] - (Please make hospital discharge follow up appointment within one week) Diet: Heart Healthy Addtl Attending Provider Instructions: You were admitted to the hospital for elevated blood pressure and stroke-like symptoms. You were treated with blood pressure medications and your blood pressure lowered to a more normal range. Fortunately your headache and left arm weakness also resolved. As we discussed, focusing on stress/anxiety management will include much more than just medications- focus on exercise, stress management techniques, hobbies. We will also send you home with new prescriptions to help address your blood pressure as we discussed. A discharge summary will be sent to your primary care physician to ensure continuity of care. Follow-up appointments: We have requested a follow-up appointment with your primary care physician within one week of discharge. Please call their office if you do not hear from them. Medications: Your medication list has been reviewed and reconciled upon discharge to ensure accuracy and continuity of care. An updated list of all your medications is included with your hospital discharge paperwork. Please review this list closely, and make note of any changes. We sent a new medication called Olmesartan to your pharmacy. Take Olmesartan 20mg, 1 tablet by mouth daily. We sent a new medication called Atorvastatin to your pharmacy. Take Atorvastatin 40mg, 1 tablet by mouth daily. We sent a new medication called Aspirin to your pharmacy. Take Aspirin 81mg, 1 tablet by mouth daily. You can also buy this over the counter if it is more affordable than the prescription. CALL 911 OR GO TO THE EMERGENCY DEPARTMENT if you experience any of the following: Sudden, severe abdominal pain or nausea/vomiting Severe chest pain, or chest pain that radiates (moves) to your jaw or arm Sudden, severe shortness of breath or difficulty breathing Thank you for allowing us to participate in your care. Pending Studies at Discharge: Yes (lipid profile pending. follow up with PCP for result) Stand-Alone Forms: [facility], Smoking Cessation Medications and DC Order Prescriptions: New atorvastatin 40 mg tablet 40 mg PO DAILY 30 Days Qty: 30 0RF aspirin 81 mg capsule 81 mg PO DAILY 30 Days Qty: 30 0RF olmesartan 20 mg tablet 20 mg PO DAILY 30 Days Qty: 30 0RF Continued Tylenol 1 tab PO DIRECTED Rx Instructions: OTC. Discharge Orders: Discharge Order (Routine); Ordered 06/28/23 Ordered By: Fang Rodriguez Admission Data Admit Date/Time: 06/27/23 17:28 Attending Provider: Sandor Nguyễn Admit Provider: Jacobo Abel Primary Care Provider: Ezekiel Swenson V. Other Providers: Jacobo Abel Supervising Physician Co-Signing Physician Notes I personally examined the patient and verified all sevilla points of history and exam, discussed case, and agree with decision making with Dr Rodriguez feeling better and would very much like to go home. discussed med/lifestyle management extensively. expressed good understanding vitals noted nad heent nc at mmm breathing unlabored no accessory muscles good effort skin no rashes no pallor or icterus neuro no focal deficits. labs noted. previous echo, CTA head/neck from 08/17 noted hypertensive crisis - fortunately resolved. no CVA. BP likel baseline HTN exacerbated by stress/anxiety. doubt but hard to rule out small vessel ischemia creating autoregulation - although less likely. for now protect for that w asa/statin (might not need snf as her story unfolds); treat BP w ARB (BMP next week, home BP monitoring); anxiety - extensive discussion on "active stress management" both from exercise/physical activity and quiet/meditative modalities - she expressed good understanding. briefly discussed role of med management but felt it best further discussed with PCP who would then be able to f/u on any meds when/if started. stable for home, PCP f/u next week, otherwise as above Resident Activity Tracking Resident Involvement: Resident Care Provided Care Provided: Adult Hospital Medicine
[2023-06-28 12:20] LABS: Cholesterol 194 mg/dl (0-200); HDL Cholesterol 98 mg/dl; LDL Cholesterol Calculated 76 mg/dl; Triglycerides 98 mg/dl (0-150); VLDL Cholesterol 20 mg/dl (0-30)
--- NOTE | 2023-06-28 13:16 | Billing Data ---
Date of Service June 28, 2023 Coding Level of Care Code 29712 IN/OBS DISCH 30 MIN/LESS
== END 2023-06-28 13:41 | disposition home or self-care (01) | DRG 305 ==
LOC: ED 11:38 → SUATTDRO 17:28 → EDINP 17:28